=== PATIENT | female | born 1990 | race Caucasian/White ===

== ENCOUNTER 2020-11-30 13:21 | Emergency (ER) | payer OTHER ==
[~2020-11-30] VITALS: Ht 162.6 cm; Wt 63.6 kg
[2020-11-30 13:31] VITALS: TEMP 97.7
[2020-11-30] MEDS ORDERED: VYVANSE30 MG PO (13:36)
[2020-11-30 14:50] VITALS: BP 117/88; PULSE 78
== END 2020-11-30 14:45 | disposition home or self-care (01) ==
LOC: COL.ER 13:21
DX: R51.9 Headache, unspecified (principal); Z32.02 Encounter for pregnancy test, result negative; Z88.0 Allergy status to penicillin